=== PATIENT | male | born 1980 | race Caucasian/White ===

== ENCOUNTER 2018-06-22 06:16 | Day surgery (SDC) | payer OTHER ==
[2018-06-22] MEDS: SOD CHLORIDE 0.9% 1,000 ML IV (06:00)
[2018-06-22] MEDS ORDERED: GLYCOPYRROLATE 0.4 MG INJ (06:19)
[2018-06-22] MEDS ORDERED: NEOSTIGMINE 3 MG/3 ML SYRINGE (06:19)
[2018-06-22] MEDS ORDERED: ROCURONIUM 50 MG INJ (06:19)
[2018-06-22] MEDS ORDERED: PROPOFOL 20 ML (06:19)
[2018-06-22] MEDS ORDERED: LIDOCAINE 2% (SDV) 5 ML INJ (06:19)
[2018-06-22] MEDS ORDERED: FENTAnyl 50 MCG/ML VIAL (06:19)
[2018-06-22] MEDS ORDERED: MIDAZOLAM 1 MG/ML 2 ML INJ (06:19)
[2018-06-22] MEDS ORDERED: DEXAMETHASONE 4 MG/ML 1 ML INJ (06:20)
[2018-06-22] MEDS ORDERED: SUGAMMADEX SODIUM 200 MG/2 ML VIAL IV (06:20)
[2018-06-22] MEDS ORDERED: ONDANSETRON 4 MG INJ (06:20)
[2018-06-22] MEDS ORDERED: DIPHENHYDRAMINE 50 MG INJ IV (06:30)
[2018-06-22] MEDS ORDERED: morphine (1 MG/ML) 10ML SYRINGE IV ×3 (06:30)
[2018-06-22] MEDS ORDERED: HYDROmorphONE 1 MG/5 ML IV SYRINGE IV ×3 (06:30)
[2018-06-22] MEDS ORDERED: FENTAnyl 50 MCG/ML VIAL IV ×2 (06:30)
[2018-06-22] MEDS ORDERED: EPHEDrine SULFATE 50 MG/5 ML SYG IV (06:30)
[2018-06-22] MEDS ORDERED: ONDANSETRON 4 MG INJ IV (06:30)
[2018-06-22] MEDS ORDERED: hydrALAzine 20 MG INJ IV (06:30)
[2018-06-22] MEDS ORDERED: LABETALOL HCL 20MG INJ IV (06:30)
[2018-06-22] MEDS ORDERED: OXYCODONE/ACETAMINOPHEN (5/325) TAB PO ×2 (06:30)
[2018-06-22] MEDS ORDERED: MEPERIDINE 25 MG INJ IV (06:30)
[2018-06-22] MEDS ORDERED: ATROPINE 1 MG/10 ML SYRINGE IV (06:30)
[2018-06-22] MEDS ORDERED: MIDAZOLAM 1 MG/ML 2 ML INJ IV (06:30)
[2018-06-22 08:16] LABS: ADD MAN DIFF? NO
[2018-06-22 08:18] LABS: BASOPHILS % 0.3 % (0.0-2.0); EOSINOPHILS # 0.2 10^3/ul (0.0-0.5); EOSINOPHILS % 1.8 % (0.0-7.0); HEMATOCRIT 47.5 % (42.0-52.0); LYMPHOCYTES # 3.2 10^3/ul (0.8-2.9); LYMPHOCYTES % 35.2 % (15.0-51.0); MEAN CORPUSCULAR HEMOGLOBIN 30.9 pg (29.0-33.0); MEAN CORPUSCULAR HGB CONC 33.7 g/dl (32.0-37.0); MEAN CORPUSCULAR VOLUME 91.9 fl (82.0-101.0); MEAN PLATELET VOLUME 9.8 fl (7.4-10.4); MONOCYTE # 0.7 10^3/ul (0.3-0.9); MONOCYTES % 7.3 % (0.0-11.0); NEUTROPHIL # 4.9 10^3/ul (1.6-7.5); NEUTROPHILS % 54.8 % (39.0-77.0); PLATELET COUNT 233 10^3/UL (140-415); RED BLOOD COUNT 5.17 10^6/ul (4.70-6.10); RED CELL DISTRIBUTION WIDTH 13.5 % (11.5-14.5)
[2018-06-22] MEDS ORDERED: LIDOCAINE 1%/EPI 30 ML INJ (08:20)
[2018-06-22 08:26] LABS: INR 0.82; PARTIAL THROMBOPLASTIN TIME 26.1 Sec (23.0-35.0); PROTIME 11.3 Sec (11.9-14.9); PT RATIO 0.9
[2018-06-22 08:30] LABS: ALANINE AMINOTRANSFERASE 42 IU/L (13-69); ALBUMIN 3.9 g/dl (3.3-4.9); ALBUMIN/GLOBULIN RATIO 1.05; ALKALINE PHOSPHATASE 62 IU/L (42-121); ANION GAP 9 (5-13); ASPARTATE AMINO TRANSFERASE 35 IU/L (15-46); BILIRUBIN,INDIRECT 0.5 mg/dl (0-1.1); BILIRUBIN,TOTAL 0.5 mg/dl (0.2-1.3); BLOOD UREA NITROGEN 18 mg/dl (7-20); CALCIUM 10.2 mg/dl (8.4-10.2); CARBON DIOXIDE 26 mmol/L (21-31); CHLORIDE 104 mmol/L (97-110); CREATININE 1.07 mg/dl (0.61-1.24); GLUCOSE 107 mg/dl (70-220); SODIUM 139 mmol/L (135-144); TOTAL PROTEIN 7.6 g/dl (6.1-8.1)
[2018-06-22] MEDS: LIDOCAINE 2% (MDV) 20 ML INJ (08:45)
[2018-06-22] MEDS ORDERED: SUCCINYLCHOLINE CHLORIDE 100 MG/5 ML SYG IV (08:47)
[2018-06-22] MEDS ORDERED: CEFAZOLIN 1 GM INJ (08:47)
[2018-06-22] MEDS: CEFAZOLIN 1 GM/50 ML (PMX) 50 ML IVPB (09:25)
== END 2018-06-22 11:25 | disposition home or self-care (01) ==
LOC: SDS 06:16
DX: L85.8 Other specified epidermal thickening (principal)
CPT/HCPCS: 14060; 80053; 85025; 85610; 85730; 88307